=== PATIENT | female | born 1965 | race Hispanic/Latino ===

== ENCOUNTER 2022-05-06 08:44 | Emergency (ER) | payer OTHER ==
[~2022-05-06] VITALS: Ht 154.9 cm; Wt 64.9 kg
[2022-05-06] MEDS ORDERED: SODIUM CHLORIDE 0.9% 1000ML 1,000 ML IV STA (09:01)
[2022-05-06] MEDS ORDERED: ONDANSETRON HCL INJ 2MG/ML 2ML 2 MG/ML VIAL IV ONE ×2 (09:01→12:18)
[2022-05-06 09:15] LABS: BASOPHILS % 0.3 % (0.0-1.0); EOSINOPHILS % 1.4 % (0.0-6.0); HEMATOCRIT 41.8 % (34.2-44.1); HEMOGLOBIN 12.2 g/dL (12.0-16.0); LYMPHOCYTES # (AUTO) 1.5 (1.0-3.2); MEAN CORPUSCULAR HEMOGLOBIN 24.3 pg (28-32); MEAN CORPUSCULAR HGB CONC 29.2 g/dL (31-35); MEAN CORPUSCULAR VOLUME 83.3 fL (81-99); MONOCYTES # (AUTO) 0.1 (0.2-0.8); MONOCYTES % 3.4 % (4.4-11.3); NEUTROPHILS # (AUTO) 1.3 (2.1-6.9); NEUTROPHILS % 44.6 % (38.7-80.0); PLATELET COUNT 246 x10e3/uL (140-360); RED BLOOD COUNT 5.02 x10e6/uL (3.6-5.1); RED CELL DISTRIBUTION WIDTH 15.9 % (11.7-14.4)
[2022-05-06 09:57] LABS: ALBUMIN 3.6 g/dL (3.5-5.0); ANION GAP 15.1 mmol/L (8-16); CALCIUM 8.9 mg/dL (8.4-10.2); CREATININE, SERUM 0.78 mg/dL (0.57-1.11); MAGNESIUM 1.8 MG/DL (1.3-2.1); POTASSIUM 3.1 mmol/L (3.5-5.1)
[2022-05-06] MEDS ORDERED: PROMETHAZINE 12.5MG/ NACL 0.9% 12.5 MG/50 ML BAG IV ONE (10:00)
[2022-05-06] MEDS ORDERED: IOPAMIDOL 370 MG/ML 100 ML INFUS..BTL INJ ONE (10:41)
[2022-05-06 11:30] LABS: CLARITY,URINE CLEAR (CLEAR); COLOR,URINE YELLOW (YELLOW); KETONES,URINE NEGATIVE (NEGATIVE); LEUKOCYTE ESTERASE ,URINE NEGATIVE (NEGATIVE); NITRITE,URINE NEGATIVE (NEGATIVE); PROTEIN,URINE DIPSTICK NEGATIVE (NEGATIVE); URINE UROBILINOGEN 0.2 mg/dL (0.2 - 1)
[2022-05-06 11:43] LABS: BACTERIA,URINE FEW /HPF; RBC,URINE 0-5 /HPF (0-5); WBC,URINE (MAN) 0-5 /HPF (0-5)
[2022-05-06 11:44] LABS: CALCIUM OXALATE CRYSTALS,UR RARE (FEW); EPITHELIAL CELLS,URINE MODERATE /LPF
[2022-05-06] MEDS ORDERED: Morphine 4mg INJECTION 4 MG/ML INJ IV ONE (12:18)
[2022-05-06] MEDS ORDERED: METRONIDAZOLE500 MG PO (13:03)
[2022-05-06] MEDS ORDERED: DICYCLOMINE HCL20 MG PO (13:03)
[2022-05-06] MEDS ORDERED: CIPRO500 MG PO (13:03)
[2022-05-06] MEDS ORDERED: ONDANSETRON ODT4 MG PO (13:03)
== END 2022-05-06 13:30 | disposition home or self-care (01) ==
LOC: ER 08:50
DX: R10.32 Left lower quadrant pain (principal); K52.9 Noninfective gastroenteritis and colitis, unspecified; C18.9 Malignant neoplasm of colon, unspecified; R11.2 Nausea with vomiting, unspecified; K59.00 Constipation, unspecified; Z79.899 Other long term (current) drug therapy
CPT/HCPCS: 36415; 74177; 80053; 81001; 83735; 85025; 87086; 99284; C9113; J2270; J2405; J2550; J7030; Q9967